=== PATIENT | male | born 1960 | race Caucasian/White ===

== ENCOUNTER 2019-02-16 17:08 | Emergency (ER) | payer SELFPAY ==
[~2019-02-16] VITALS: Ht 175.3 cm; Wt 81.8 kg
[2019-02-16 18:43] LABS: BASO % 0.1 % (0.0-1.0); HEMATOCRIT 45.6 % (42.0-52.0); HEMOGLOBIN 15.4 g/dl (13.5-17.5); LYMPH # 0.7 10^3/uL (1.5-5.0); LYMPH % 6.5 % (24.0-44.0); MEAN CORPUSCULAR HEMOGLOBIN 30.4 pg (27.0-33.0); MEAN CORPUSCULAR HGB CONC 33.8 g/dl (32.0-36.5); MEAN CORPUSCULAR VOLUME 90.1 fl (80.0-96.0); MONO # 0.6 10^3/uL (0.0-0.8); MONO % 4.9 % (0.0-5.0); NEUTROPHILS # 9.9 10^3/uL (1.5-8.5); NEUTROPHILS % 88.2 % (36.0-66.0); PLATELET COUNT, AUTOMATED 211 10^3/uL (150-450); RED BLOOD COUNT 5.06 10^6/uL (4.30-6.10); WHITE BLOOD COUNT 11.3 10^3/uL (4.0-10.0)
[2019-02-16 19:07] LABS: BILIRUBIN,DIRECT 0.2 MG/DL (0.0-0.2); BILIRUBIN,TOTAL 0.7 MG/DL (0.2-1.0); CALCIUM LEVEL 8.9 MG/DL (8.5-10.1); CREATININE FOR GFR 1.45 MG/DL (0.70-1.30); GLOMERULAR FILTRATION RATE 53.2 (>56); POTASSIUM SERUM 4.4 MEQ/L (3.5-5.1); TOTAL PROTEIN 7.9 GM/DL (6.4-8.2)
[2019-02-16] MEDS ORDERED: ONDANSETRON 4MG/2ML VIAL (J2405) IV ONE (19:30)
[2019-02-16] MEDS ORDERED: NS 1,000 ML IV ONE (19:30)
[2019-02-16] MEDS ORDERED: MORPHINE 4 MG/ML 1ML VIAL/SYRINGE (J2270) IV ONE (19:30)
--- NOTE | 2019-02-16 20:27 | REPVR ---
PROCEDURE INFORMATION: Exam: CT Abdomen And Pelvis Without Contrast Exam date and time: 02/16/2019 7:25 PM Age: 58 years old Clinical history: Abdominal pain; Flank; Right; Additional info: Right flank pain, HX off stones TECHNIQUE: Imaging protocol: Computed tomography of the abdomen and pelvis without contrast. Radiation optimization: All CT scans at this facility use at least one of these dose optimization techniques: automated exposure control; mA and/or kV adjustment per patient size (includes targeted exams where dose is matched to clinical indication); or iterative reconstruction. COMPARISON: No relevant prior studies available. FINDINGS: Liver: Punctate calcifications within the liver, likely calcified granulomas. There is a low-density lesion measuring 8 mm within the right hepatic lobe likely cyst. There a few hepatic low-density lesions, measuring under 5 mm, which are too small to adequately characterize. No intrahepatic duct dilatation. Gallbladder and bile ducts: Unremarkable. Normal caliber common bile duct. Pancreas: Unremarkable. No ductal dilation. Spleen: Unremarkable. No splenomegaly. Adrenals: Normal. No mass. Kidneys and ureters: There are 2 nonobstructing stones measuring 4 mm within the right kidney. There is a 4 mm diameter stone and 3 mm diameter stone both at the right ureterovesical junction. Mild right hydroureteronephrosis and stranding of the right perinephric fat is present. There are 3 nonobstructing stones, each measuring approximately 3 mm within the left kidney. The left ureter is unremarkable. Stomach and bowel: Unremarkable. No obstruction. No mucosal thickening. Appendix: No evidence of appendicitis. Intraperitoneal space: No free air. No significant fluid collection. Vasculature: Unremarkable. No abdominal aortic aneurysm. Lymph nodes: No enlarged lymph nodes. Bladder: Unremarkable as visualized. Reproductive: Unremarkable as visualized. Bones/joints: Degenerative spondylosis of the lower thoracic and lumbar spine. No acute fracture. Soft tissues: Unremarkable. IMPRESSION: 1. Right distal ureterolithiasis, resulting in mild right obstructive uropathy. 2. Bilateral nephrolithiasis. 3. Calcified granulomas within the liver and spleen. 4. 8mm low-density lesion within the right hepatic lobe, likely cyst. There are other tiny hepatic low-density lesions which are too small to adequately characterize. In a low risk patient (no known primary malignancy, hepatic dysfunction or hepatic risk factors), no additional imaging followup is necessary. In a high-risk patient (known primary malignancy with a propensity to metastasize to the liver, cirrhosis, and/or other hepatic risk factors), followup evaluation with MRI in 3-6 months is recommended as per ACR white paper guideline for the management of incidental liver lesions on CT. COMMENT: Consistent with the [employer]'s Incidental Findings Committee Report (J Am Jennifer Radiol 2010): Unless the patient's specific circumstances suggest otherwise, any liver lesion 0.5 cm or less, any cystic kidney lesion less than 1.0 cm, and/or any adrenal lesion 1.0 cm or less not otherwise characterized in this report as possessing suspicious or indeterminate imaging features is/are highly likely to be benign and do not require follow-up imaging or biopsy. Electronically signed by: Claudio Villalpando On 02/16/2019 20:27:33 PM
[2019-02-16] MEDS ORDERED: FLOM0.4C39 PO (21:14)
[2019-02-16] MEDS ORDERED: NORC1TAB7 PO (21:16)
--- NOTE | 2019-02-16 21:29 | SMCUROLCON ---
Urology Consultation General Date of Consultation 02/16/19 Reason For Consultation This patient is seen for Flank Pain. History of Present Illness The patient is a 58-year-old male with a past medical history for kidney stones 7-8 years ago. Past Medical History Medical History Patient state that he was doing well until a couple days ago when he started to develop right flank pain radiating down to the right groin. He also had nausea, vomiting, sweating. Symptoms got worse today and he came to the emergency room. Allergies Allergies: Coded Allergies: No Known Drug Allergies (Verified Allergy, Unknown, 02/16/19) Review of Systems General: Denies: ROS Unobtainable, Chills, Night Sweats, Fatigue, Malaise, Normal Appetite, Other Symptoms Constitutional: Reports: Sweats; Denies: Fever, Chills, Weakness, Malaise, Other Eyes: Denies: Pain, Vision change, Conjunctivae inflammation, Eyelid inflammation, Redness, Other ENT: Denies: Head Aches, Ear Pain, Dysphagia, Sinus Congestion, Post Nasal Drip, Sore Throat, Epistaxis, Other Symptoms Skin: Denies: Rash, Lesions, Jaundice, Bruising, Itching, Dry, Breakdown, Nail Changes, Other Pulmonary: Denies: Dyspnea, Cough, Pleuritic Chest Pain, Other Symptoms Cardiovascular: Denies Chest Pain, Denies Palpitations, Denies Orthopnea, Denies Paroxysmal Noc. Dyspnea, Denies Edema, Denies Lt Headedness, Denies Other Symptoms Gastrointestinal: Reports: Nausea, Vomiting; Denies: Abdominal Pain, Diarrhea, Constipation, Melena, Hematochezia, Other Symptoms Genitourinary: Denies: Dysuria, Frequency, Incontinence, Hematuria, Retention, Other Symptoms Hematologic: Denies: Bruising, Bleeding Excessively, Petecchia, Purpura, Enlarged Lymph Nodes, Other Hematologic Endocrine: Denies: Polydipsia, Polyphagia, Polyuria, Heat Intolerance, Cold Intolerance, Other Endocrine Sx Musculoskeletal: Reports: Back Pain; Denies: Neck Pain, Shoulder Pain, Arm Pain, Hand Pain, Leg Pain, Foot Pain, Joint Pain, Muscle Pain, Spasms, Other Symptoms Neurological: Denies: Weakness, Numbness, Incoordination, Change in Speech, Confusion, Seizures, Other Symptoms Psych: Denies: Mood Normal, Anxiety, Depression, Memory Issues, Thoughts of Self Harm, Anger, Thoughts of harming Other, Other Psych Physical Examination General Exam: Cooperative EYE EXAM: PERRLA, Conjunctiva & lids normal ENT EXAM: Tongue Midline Neck Exam: Supple, +2 carotid pulse wo bruit Chest Exam: Clear to auscultation Heart Exam: Rate Normal Abdomen Exam: Normal Bowel Sounds Extremity Exam: No: Clubbing, Cyanosis, Edema, Normal Pulses, Tenderness, Swelling, Other Skin Exam: No: Nl turgor and temperature, Rash, Breakdown, Lesion, Pruritus, Other skin issue Vital Signs/I&O Vital Signs Date Time Temp Pulse Resp B/P (MAP) Pulse Ox O2 Delivery O2 Flow Rate FiO2 02/16/19 21:14 98.0 55 18 159/84 (109) 95 Room Air Laboratory Data 24H Labs Laboratory Tests 2 02/16/19 18:28: Immature Granulocyte % (Auto) 0.3, Neutrophils (%) (Auto) 88.2H, Lymphocytes (%) (Auto) 6.5L, Monocytes (%) (Auto) 4.9, Eosinophils (%) (Auto) 0.0, Basophils (%) (Auto) 0.1, Neutrophils # (Auto) 9.9H, Lymphocytes # (Auto) 0.7L, Monocytes # (Auto) 0.6, Eosinophils # (Auto) 0.0, Basophils # (Auto) 0.0, Nucleated Red Blood Cells % (auto) 0.0, Anion Gap 8, Glomerular Filtration Rate 53.2L, Calcium Level 8.9, Total Bilirubin 0.7, Direct Bilirubin 0.2, Aspartate Amino Transf (AST/SGOT) 17, Alanine Aminotransferase (ALT/SGPT) 31, Alkaline Phosphatase 96, Total Protein 7.9, Albumin 4.0, Albumin/Globulin Ratio 1.03, Lipase 65L 02/16/19 18:31: Urine Color YELLOW, Urine Appearance HAZY, Urine pH 5.0, Urine Specific [place] 1.030, Urine Protein 1+H, Urine Glucose (UA) NEGATIVE, Urine Ketones 1+H, Urine Blood NEGATIVE, Urine Nitrite NEGATIVE, Urine Bilirubin NEGATIVE, Urine Urobilinogen 0.2, Urine Leukocyte Esterase NEGATIVE, Urine WBC (Auto) 1, Urine RBC (Auto) 6H, Urine Hyaline Casts (Auto) 0, Urine Bacteria (Auto) NEGATIVE, Urine Squamous Epithelial Cells 0, Urine Mucus (Auto) SMALL, Urine Sperm (Auto) 02/16/19 19:38: Lactic Acid Level 1.3 CBC/BMP Laboratory Tests 02/16/19 18:28 Assessment Patient 58-year-old gentleman kidney stone. Noncontrast abdomen and pelvis CT scan consistent with 2 nonobstructing stones 4 mm within the right kidney, 4 mm stone and 3 mm stone at the right ureteral vesicle junction. Mild right hydronephrosis and stranding of the right perinephric fat. Three Nonobstructing stones, each measuring 3 mm within the left kidney. Left collecting system without hydronephrosis. Patient is stable and comfortable Plan Discharge to home. Follow-up with urology clinic in approximately 3 weeks. Follow-up sooner pain episode returns. If fever, chills, occurs seek immediate medical attention Time Spent on Consult: Time Spent / Consult (Minutes): 25 CHESTER WINTERS MD Feb 16, 2019 21:29
[2019-02-16] MEDS ORDERED: NORCO 5/325MG TABLET (BULK FOR ED) PO ONE (22:00)
[2019-02-16 22:21] VITALS: BP 163/79
--- NOTE | 2019-02-17 16:04 | ED PDOC ---
Post-Departure Follow-Up certified letter sent to pt re formal read of ct abd/p for fu . see report. need s fu w pcp. find name and fax. if no pcp refer to [facility] and fax Valentino Arechiga MD Feb 17, 2019 16:03
== END 2019-02-16 22:23 | disposition home or self-care (01) ==
LOC: M ED 17:08
DX: N20.0 Calculus of kidney (principal); Z87.442 Personal history of urinary calculi; N20.1 Calculus of ureter; K76.89 Other specified diseases of liver
CPT/HCPCS: 74176; 80048; 80076; 81001; 83605; 83690; 85025; 96361; 96374; 96375; 99284; J2270; J2405

== ENCOUNTER 2020-10-15 13:31 | Emergency (ER) | payer SELFPAY ==
[~2020-10-15] VITALS: Ht 175.3 cm; Wt 80.5 kg
[~2020-10-15 13:31] MED LIST: FLOM0.4C39 PO; NORC1TAB7 PO
[2020-10-15 14:04] LABS: HEMATOCRIT 45.2 % (42.0-52.0); HEMOGLOBIN 15.1 g/dl (13.5-17.5); MEAN CORPUSCULAR HEMOGLOBIN 30.6 pg (27.0-33.0); MEAN CORPUSCULAR HGB CONC 33.4 g/dl (32.0-36.5); MEAN CORPUSCULAR VOLUME 91.7 fl (80.0-96.0); PLATELET COUNT, AUTOMATED 225 10^3/uL (150-450); RED BLOOD COUNT 4.93 10^6/uL (4.30-6.10); WHITE BLOOD COUNT 8.3 10^3/uL (4.0-10.0)
[2020-10-15 14:34] LABS: ACETAMINOPHEN LEVEL < 2.0 UG/ML (10.0-30.0); ALBUMIN 4.1 GM/DL (3.2-5.2); ALT/SGPT 39 U/L (12-78); BILIRUBIN,DIRECT 0.3 MG/DL (0.0-0.2); BILIRUBIN,TOTAL 0.9 MG/DL (0.2-1.0); BLOOD UREA NITROGEN 25 MG/DL (7-18); CALCIUM LEVEL 9.1 MG/DL (8.8-10.2); CARBON DIOXIDE LEVEL 28 MEQ/L (21-32); CHLORIDE LEVEL 107 MEQ/L (98-107); CREATININE FOR GFR 0.95 MG/DL (0.70-1.30); ETHYL ALCOHOL (ETHANOL) < 0.003 % (0.000-0.010); GLOMERULAR FILTRATION RATE > 60.0 (>49); GLUCOSE, FASTING 101 MG/DL (70-100); POTASSIUM SERUM 4.1 MEQ/L (3.5-5.1); SALICYLATE LEVEL < 1.7 MG/DL (5.0-30.0); SODIUM LEVEL 143 MEQ/L (136-145); TOTAL PROTEIN 7.9 GM/DL (6.4-8.2)
[2020-10-15 14:37] LABS: AMPHETAMINES LEVEL URINE NEGATIVE (NEGATIVE); BARBITURATES URINE NEGATIVE (NEGATIVE); BENZODIAZEPINES URINE NEGATIVE (NEGATIVE); CANNABINOIDS URINE NEGATIVE (NEGATIVE); COCAINE METABOLITE URINE NEGATIVE (NEGATIVE); METHADONE URINE NEGATIVE (NEGATIVE); OPIATES URINE NEGATIVE (NEGATIVE); PHENCYCLIDINE URINE NEGATIVE (NEGATIVE)
[2020-10-15 14:59] VITALS: BP 142/82
== END 2020-10-15 15:00 | disposition home or self-care (01) ==
LOC: M ED 13:31
DX: F43.0 Acute stress reaction (principal); Z87.442 Personal history of urinary calculi